=== PATIENT | female | born 1960 | race Caucasian/White ===

== ENCOUNTER 2018-04-20 19:03 | Emergency (ER) | payer MEDICARE ==
--- NOTE | 2018-04-20 21:05 | EDM.PDOC ---
ED HPI GENERAL MEDICAL PROBLEM - General Chief Complaint: Skin Complaint Stated Complaint: EYE COMPLAINT Time Seen by Provider: 04/20/18 20:44 - History of Present Illness INITIAL COMMENTS - FREE TEXT/NARRATIVE: 58-year-old female with a skin lesion below her left eye This started out as a fairly large pimple about a week ago the patient tried to squeeze it she has some material out of it but she developed quite a bit of swelling around the area this is not getting any better. She has not had any fevers or chills she's has not noticed any streaking her vision is unchanged. Left Cheek Pain Score (Numeric/FACES): 8 - Related Data Allergies Allergy/AdvReac Type Severity Reaction Status Date / Time No Known Allergies Allergy Verified 04/20/18 20:33 Home Meds: Home Meds Sulfamethoxazole/Trimethoprim [Bactrim Ds Tablet] 1 each PO Q12H #14 tablet 12/29 [Rx] ED ROS GENERAL - Review of Systems Review Of Systems: See Below Constitutional: Denies: Fever, Chills HEENT: Reports: No Symptoms Respiratory: Reports: No Symptoms Cardiovascular: Reports: No Symptoms GI/Abdominal: Reports: No Symptoms ED EXAM, SKIN/RASH Exam: See Below Exam Limited By: No Limitations General Appearance: Alert, No Apparent Distress Head: Atraumatic, Normocephalic, Other (Skin below her face is erythematous and irritated) Neck: Normal Inspection, Supple, Non-Tender, Full Range of Motion. No: Lymphadenopathy (L), Lymphadenopathy (R) Respiratory/Chest: No Respiratory Distress, Lungs Clear, Normal Breath Sounds Cardiovascular: Normal Peripheral Pulses, Regular Rate, Rhythm, No Edema Course - Vital Signs Last Recorded V/S: Last Vital Signs Temp 36.7 C 04/20/18 20:30 Pulse 82 04/20/18 20:30 Resp 18 04/20/18 20:30 BP 154/85 H 04/20/18 20:30 Pulse Ox 98 04/20/18 20:30 Departure - Departure Time of Disposition: 21:01 Disposition: Home, Self-Care 01 Clinical Impression: Facial abscess - Discharge Information Prescriptions: Sulfamethoxazole/Trimethoprim [Bactrim Ds Tablet] 1 each PO Q12H #14 tablet Referrals: PCP,None [Primary Care Provider] - Additional Instructions: Return to the emergency room with any questions problems worsening symptoms. Take all the antibiotics as directed. Follow-up in the clinic with your regular provider on or Friday. Use warm moist heat to the area for 15-20 minutes every 2 hours while you are awake.
== END 2018-04-20 21:15 | disposition home or self-care (01) ==
LOC: JD.ED 19:03
DX: L02.01 Cutaneous abscess of face (principal)
CPT/HCPCS: 99282; 99283